=== PATIENT | female | born 1955 | race Caucasian/White ===

== ENCOUNTER 2023-04-01 01:19 | Emergency (ER) | payer OTHER, SELFPAY ==
[2023-04-01] VITALS (13 sets, daily range): BP systolic 125–152; BP diastolic 69–84; PULSE 60–90; RESP 15–24; TEMP 36.8; O2SAT 93–96; BMI 28.3
--- NOTE | 2023-04-01 01:49 | ECG_ITS ---
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
--- NOTE | 2023-04-01 01:49 | XR_ITS ---
The [address] [address] Patient Name: JAVY HACKETT MRN: [id number] date: 1955 Sex: F Assigned Patient Location: ER Current Patient Location: ED.MAIN Accession/Order Number: [id number] Exam Date: 04/01/2023 01:50 Report Date: 04/01/2023 02:27 At the request of: CIARA DEVI Procedure: XR chest 1V EXAM: XR chest 1V HISTORY: CP COMPARISON: None available TECHNIQUE: Single frontal view chest x-ray FINDINGS: ICD lead tips at the right atrium and right ventricle. No lung consolidation, large pleural effusions, pneumothorax, or acute bony abnormality. Cardiac size is unremarkable. XR/XR chest 1V IMPRESSION: No radiographic evidence for acute chest abnormality. Electronically authenticated by: YUMIKO JLUIO Date: 04/01/2023 02:27
--- NOTE | 2023-04-01 01:52 | ED.CHESTPAI1 ---
HPI - Chest Pain General Chief Complaint: Chest Pain Time Seen by Provider: 04/01/23 01:49 Source: patient and family () Mode of arrival: ambulance Limitations: no limitations History of Present Illness HPI narrative: This 68-year-old female, nonsmoker, presents for evaluation of left-sided chest pain. The patient's gives the history due to the fact that the patient has had a stroke with short-term memory loss several years ago. The patient's states that he was awakened because the patient was walking around in the house. He found her pacing in the hallway of the house holding the left side of her chest. She had taken 2 Tums and was continuing to have chest pain and it was radiating to her left jaw. The patient denies that she has any chest pain upon arrival. The patient's states that the Tums started working after he called EMS but before they got there. She does not recall what the chest pain felt like or whether or not there was any radiation component to it. She does not feel short of breath. The patient's states he did not turn on the lights to see if she was pale or sweaty. She denies any abdominal pain nausea vomiting or diarrhea. She had a bologna sandwich for dinner and ice cream around 10 PM before going to bed. The patient is on blood thinners, he thinks she is on Xarelto but her MAR notes Eliquis. PCP is Dr Gillespie Route Specialist is Dr Stephanie KRUEGER complaint: Reports chest pain Onset: Reports after eating Pain location: Reports left chest Related Data Home Medications Medication Instructions Recorded Confirmed apixaban 5 mg tablet (Eliquis) 5 mg PO Q12H 04/01/23 04/01/23 aspirin 81 mg capsule 81 mg PO DAILY 04/01/23 04/01/23 lisinopril 20 mg tablet 20 mg PO BID 04/01/23 04/01/23 magnesium oxide 400 mg (241.3 mg 400 mg PO DAILY 04/01/23 04/01/23 magnesium) tablet metoprolol succinate 100 mg 100 mg PO DAILY 04/01/23 04/01/23 tablet,extended release 24 hr Allergies Allergy/AdvReac Type Severity Reaction Status Date / Time codeine Allergy Unknown Verified 04/01/23 01:26 Review of Systems ROS Status of ROS other (difficult to obtain as this patient has short term memory loss ) PFSH PFS Medical History (Updated 04/01/23 @ 04:28 by Delia Feliz MD) Social History Smoking status: Never smoker Exam Narrative Exam Narrative: Nurses note and vital signs reviewed and patient is not hypoxic. Blood pressure was noted to be mildly elevated at 152/81 General: The patient appears well and in no apparent distress. Patient is resting comfortably on cart. She has bouts of confusion about recent events but is otherwise alert and appropriate Skin: Warm, dry, no pallor noted. There is no rash noted. Head: Normocephalic, atraumatic Eye: Normal conjunctiva, no drainage, EOMI. PERRL Ears, Nose, Mouth, and Throat: oral mucosa is moist. Neck: Supple, no meningeal signs, no carotid bruits appreciated Cardiovascular: Regular Rate and Rhythm S1S@, no murmurs, rubs or gallops, pulses are brisk and equal bilaterally Respiratory: Patient is in no distress, no accessory muscle use, lungs are clear to auscultation, no wheezing, rales or rhonchi Back: non-tender, no CVA tenderness bilaterally to percussion. GI: Normal bowel sounds, abdomen is soft with mild epigastric tenderness, no RUQ or LUQ tenderness appreciated, no pulsatile masses or abdominal bruits appreciated Musculoskeletal: The patient has no evidence of calf tenderness, no pitting edema, symmetrical pulses noted bilaterally Neurological: A&O x4, normal speech, brief episodes of confusion but at baseline according to Psychiatric: Cooperative Constitutional Vital Signs, click to edit/add: Last Vital Signs Temp 98.3 F 04/01/23 01:18 Pulse 62 04/01/23 03:31 Resp 17 04/01/23 03:31 BP 139/76 H 04/01/23 03:31 Pulse Ox 96 04/01/23 03:31 O2 Del Method Room Air 04/01/23 01:18 Course Vital Signs Vital signs: Vital Signs Temperature 98.3 F 04/01/23 01:18 Pulse Rate 67 04/01/23 01:18 Respiratory Rate 16 04/01/23 01:18 Blood Pressure 152/81 H 04/01/23 01:18 Pulse Oximetry 96 04/01/23 01:18 Oxygen Delivery Method Room Air 04/01/23 01:18 Temperature 98.3 F 04/01/23 01:18 Pulse Rate 62 04/01/23 03:31 Respiratory Rate 17 04/01/23 03:31 Blood Pressure 139/76 H 04/01/23 03:31 Pulse Oximetry 96 04/01/23 03:31 Oxygen Delivery Method Room Air 04/01/23 01:18 MDM - Chest Pain MDM Narrative Medical decision making narrative: This 68-year-old female who has a pacemaker due to sick sinus syndrome and short-term memory loss due to a stroke several years ago is brought emergency department by EMS. The patient's called EMS because he awakened find her walking in the hallway of their house holding her chest after taking 2 Tums. Tums had not worked for her discomfort and he called the squad. Before the squad arrived her pain had resolved. She was brought to the emergency department anyway for further evaluation. On arrival she denies any chest pain and cannot recall the events of the chest pain that she had prior to coming. She is on Eliquis. She denied nausea or vomiting. She had no reproducible chest wall tenderness. An EKG done upon arrival was a sinus rhythm at 65 bpm. She was given 324 mg baby aspirin and IV Pepcid. Routine labs were ordered and are reviewed. She has a normal white count and hemoglobin. Electrolytes, LFTs and lipase are normal. Troponin and delta troponin are both normal. Chest x-ray was reviewed by radiology and was negative for acute findings and confirms the lead placements for her pacemaker. The patient's states that he was here in the past complaining of chest pain and there were no findings however he required 3 coronary stents. I explained to him the limitations of what we have available in the emergency department and offered to admit the patient for further evaluation and consultation by cardiology if deemed appropriate by the hospitalist service however he declined stating that they will follow-up with their environmental health safety manager in [place], Dr. Hatch, later today. Lab Data Labs: Lab Results 04/01/23 04/01/23 Range/Units 01:30 03:55 WBC 9.8 (4.0-11.0) 10^3/uL RBC 5.26 (4.20-5.40) 10^6/uL Hgb 15.1 (12.0-16.0) g/dL Hct 46.4 (36.0-48.0) % MCV 88.2 (81.0-99.0) fL MCH 28.7 (26.7-34.0) pg MCHC 32.5 (29.9-35.2) g/dL RDW 13.1 (11.0-15.0) % Plt Count 196 (150-450) 10^3/uL MPV 9.7 (9.5-13.5) fL Neut % (Auto) 56.9 (43.0-75.0) % Lymph % (Auto) 29.8 (20.5-60.0) % [place] % (Auto) 10.9 (1.7-12.0) % Eos % (Auto) 1.3 (0.9-7.0) % Baso % (Auto) 0.6 (0.2-2.0) % Neut # (Auto) 5.6 (1.4-6.5) 10^3/uL Lymph # (Auto) 2.9 (1.2-3.8) 10^3/uL [place] # (Auto) 1.1 H (0.3-0.8) 10^3/uL Eos # (Auto) 0.1 (0.0-0.7) 10^3/uL Baso # (Auto) 0.1 (0.0-0.1) 10^3/uL Abs Immat Gran (auto) 0.05 H (0.00-0.03) 10^3/uL Imm/Tot Granulo (auto) 0.5 (0.0-0.5) % PT 10.2 (9.0-11.6) sec INR 0.96 APTT 30.8 (22.3-36.2) sec Sodium 140 (136-145) mmol/L Potassium 3.8 (3.5-5.1) mmol/L Chloride 106 (98-107) mmol/L Carbon Dioxide 26.1 (21.0-32.0) mmol/L Anion Gap 11.7 BUN 17.0 (7.0-18.0) mg/dL Creatinine 0.90 (0.55-1.02) mg/dL Est GFR ( Amer) >60 (>=60) Est GFR (Non-Af Amer) >60 (>=60) BUN/Creatinine Ratio 18.9 Glucose 110 H (74-106) mg/dL Calcium 9.5 (8.5-10.1) mg/dL Total Bilirubin 0.3 (0.2-1.0) mg/dL AST <5 L (15-37) U/L ALT <6 L (14-59) U/L Alkaline Phosphatase 106 (46-116) U/L Troponin I High Sens 4.5 4.8 (4.0-51.3) pg/mL NT-Pro-B Natriuret Pep 15.0 (<=900.0) pg/mL Total Protein 6.8 (6.4-8.2) g/dL Albumin 3.3 L (3.4-5.0) g/dL Globulin 3.5 g/dL Albumin/Globulin Ratio 0.9 Lipase 47.0 L (73.0-393.0) U/L ECG Data Attestation: I personally reviewed and interpreted this ECG as follows: (Sinus rhythm at 65 beats for minute, normal axis, normal intervals, no acute ST segment elevation or T-wave inversion) Heart Score History: Slightly/Non-Suspicious ECG: Normal Age: >65 years Risk Factors: 1 or 2 Risk Factors Troponin: <Normal Limit Total Heart Score Recommendations & Risks:: 3 Discharge Plan Discharge Chief Complaint: Chest Pain Clinical Impression: Chest pain Patient Disposition: Home, Self-Care Time of Disposition Decision: 04:28 Condition: Good Prescriptions / Home Meds: No Action lisinopril 20 mg tablet 20 mg PO BID metoprolol succinate 100 mg tablet extended release 24 hr 100 mg PO DAILY magnesium oxide 400 mg (241.3 mg magnesium) tablet 400 mg PO DAILY Eliquis 5 mg tablet 5 mg PO Q12H aspirin 81 mg capsule 81 mg PO DAILY Stand Alone Forms: Portal Instructions Referrals: ENMANUEL GILLESPIE [Primary Care Provider] - 1 week
[2023-04-01 01:56] LABS: Basophils Absolute Auto 0.1 10^3/uL (0.0-0.1); Basophils Percent Auto 0.6 % (0.2-2.0); Eosinophils Absolute Auto 0.1 10^3/uL (0.0-0.7); Eosinophils Percent Auto 1.3 % (0.9-7.0); Hematocrit 46.4 % (36.0-48.0); Hemoglobin 15.1 g/dL (12.0-16.0); Immature Granulocytes Abs Auto 0.05 10^3/uL (0.00-0.03); Immature Granulocytes Pct Auto 0.5 % (0.0-0.5); Lymphocytes Absolute Auto 2.9 10^3/uL (1.2-3.8); Lymphocytes Percent Auto 29.8 % (20.5-60.0); Mean Corpuscular HGB Conc 32.5 g/dL (29.9-35.2); Mean Corpuscular Hemoglobin 28.7 pg (26.7-34.0); Mean Corpuscular Volume 88.2 fL (81.0-99.0); Mean Platelet Volume 9.7 fL (9.5-13.5); Monocytes Absolute Auto 1.1 10^3/uL (0.3-0.8); Monocytes Percent Auto 10.9 % (1.7-12.0); Neutrophils Absolute Auto 5.6 10^3/uL (1.4-6.5); Neutrophils Percent Auto 56.9 % (43.0-75.0); Platelet Count 196 10^3/uL (150-450); Red Blood Count 5.26 10^6/uL (4.20-5.40); Red Cell Distribution Width 13.1 % (11.0-15.0); White Blood Count 9.8 10^3/uL (4.0-11.0)
[2023-04-01 02:04] LABS: INR 0.96; Partial Thromboplastin Time 30.8 sec (22.3-36.2); Prothrombin Time 10.2 sec (9.0-11.6)
[2023-04-01] MEDS: ASPIRIN 81 MG TAB.CHEW 324 MG PO (02:07)
[2023-04-01] MEDS: FAMOTIDINE/PF 20 MG/2 ML VIAL IV (02:11)
[2023-04-01 02:14] LABS: Alkaline Phosphatase 106 U/L (46-116); Anion Gap 11.7; BUN Creatinine Ratio 18.9; Bilirubin Total 0.3 mg/dL (0.2-1.0); Calcium 9.5 mg/dL (8.5-10.1); Carbon Dioxide 26.1 mmol/L (21.0-32.0); Chloride 106 mmol/L (98-107); Estimated GFR (African America >60 (>=60); Estimated GFR (Non-African Ame >60 (>=60); Glucose 110 mg/dL (74-106); Potassium 3.8 mmol/L (3.5-5.1); Sodium 140 mmol/L (136-145); Total Protein 6.8 g/dL (6.4-8.2); Troponin I High Sensitivity 4.5 pg/mL (4.0-51.3)
[2023-04-01 02:15] LABS: Albumin Globulin Ratio 0.9; Albumin Level 3.3 g/dL (3.4-5.0); Globulin 3.5 g/dL
[2023-04-01 02:16] LABS: Alanine Aminotransferase <6 U/L (14-59); Aspartate Amino Transferase <5 U/L (15-37)
[2023-04-01 04:19] LABS: Troponin I High Sensitivity 4.8 pg/mL (4.0-51.3)
== END 2023-04-01 04:56 | disposition home or self-care (01) ==
PROVIDERS: Emergency Provider Emergency Medicine; PCP Internal Medicine
DX: R07.9 Chest pain, unspecified (principal); I69.311 Memory deficit following cerebral infarction; Z79.01 Long term (current) use of anticoagulants; Z79.82 Long term (current) use of aspirin; Z79.899 Other long term (current) drug therapy; Z95.0 Presence of cardiac pacemaker; Z95.5 Presence of coronary angioplasty implant and graft
CPT/HCPCS: 36415; 71045; 80053; 83690; 83880; 84484; 85025; 85610; 85730; 93005; 96374; 99285